=== PATIENT | male | born 1935 | race Caucasian/White ===

== ENCOUNTER 2018-05-26 11:30 | Inpatient (IN) | payer MEDICARE, OTHER ==
[~2018-05-26] VITALS: Ht 172.7 cm; Wt 97.3 kg
[2018-05-26] MEDS ORDERED: FUROSEMIDE 20 MG TAB PO ONE (11:45)
[2018-05-26] MEDS ORDERED: FUROSEMIDE 20 MG TAB ONE (12:12)
[2018-05-26 12:34] LABS: Basophils # (auto) 0.1 uL; Basophils % (auto) 0.7 % (0.0-2.0); Eosinophils # (auto) 0.8 uL; Eosinophils % (auto) 9.3 % (0.0-7.0); Hematocrit 37.5 % (41.0-53.0); Hemoglobin 12.3 g/dL (13.5-17.5); Lymphocytes # (auto) 0.8 uL; Mean Corpuscular Hemoglobin 29.4 pg (28.0-32.0); Mean Corpuscular Hgb Conc. 32.7 g/dL (32.0-36.0); Mean Corpuscular Volume 89.8 fL (80.0-100.0); Monocytes # (auto) 0.7 uL; Monocytes % (auto) 8.5 % (0.0-12.0); Neutrophils # (auto) 6.2 uL; Neutrophils % (auto) 72.5 % (37.0-80.0); Platelet Count (auto) 131 10^3/uL (140-450); Red Blood Cells 4.17 10^6/uL (4.5-5.90); Red Cell Distribution Width 15.5 % (11.8-14.3); White Blood Cell 8.5 10^3/uL (4.4-10.8)
[2018-05-26 12:50] LABS: INR 0.94 (0.9-1.15); Partial Thromboplastin Time 29.2 sec (23.78-33.04); Prothrombin Time 10.1 sec (9.27-12.13)
[2018-05-26 12:54] LABS: Albumin 2.8 g/dL (3.4-5.0); Calcium 7.9 mg/dL (8.5-10.1); Potassium 4.7 mmol/L (3.5-5.1)
[2018-05-26 12:59] LABS: BUN/Creatinine Ratio 13.4; Bilirubin, Total 0.5 mg/dL (0.2-1.0); Total Protein 7.2 g/dL (6.4-8.2)
[2018-05-26] MEDS ORDERED: ENOXAPARIN SOD 100 MG/1 ML SYRINGE SC ONE (13:15)
[2018-05-26] MEDS ORDERED: ACETAMINOPHEN 500 MG TAB PO PRN (13:45)
[2018-05-26] MEDS ORDERED: ALBUTEROL SULF 2.5 MG/0.5ML(0.5%) NEB SOLN NEB PRN (13:45)
[2018-05-26] MEDS ORDERED: NITROGLYCERIN 0.4 MG SL TAB SL PRN (13:45)
[2018-05-26] MEDS ORDERED: TEMAZEPAM 15 MG CAP PO PRN (13:45)
[2018-05-26] MEDS ORDERED: LORazepam 0.5 MG TAB PO PRN (13:45)
[2018-05-26] MEDS ORDERED: LACTULOSE 20Gm/30ML SOLN PO PRN (13:45)
[2018-05-26] MEDS ORDERED: HYDROcodone-ACET 5/325MG TAB PO PRN (13:45)
[2018-05-26] MEDS ORDERED: MORPHINE SULFATE 4 MG/ML SYR/VIAL IV PRN ×2 (13:45)
[2018-05-26] MEDS ORDERED: PROMETHAZINE HCL 25 MG/ML 1ML IV PRN (13:45)
[2018-05-26] MEDS ORDERED: IOHEXOL 350 MG/ML 100ML IJ ONE (13:46)
[2018-05-26] MEDS ORDERED: LIDOCAINE 2%HCL (LOCAL ANESTH.) INJ 20ML MDV ONE (13:46)
[2018-05-26] MEDS ORDERED: fentaNYL CITRATE 100 MCG/2 ML VL ONE ×2 (13:53→16:14)
[2018-05-26] MEDS ORDERED: SODIUM CHL 0.9% 50 ML ONE ×2 (13:54→16:17)
[2018-05-26] MEDS ORDERED: MIDAZOLAM HCL 1MG/1ML-2 ML VIAL ONE ×2 (13:54→15:55)
[2018-05-26] MEDS ORDERED: ANGIOMAX 250 MG VIAL IV ONE ×2 (13:55→16:17)
[2018-05-26] MEDS: SODIUM CHLOR 0.9% PF (SALINE LOCK) 10ML VIAL/SYR IV SCH ×2 (14:00→22:41)
[2018-05-26] MEDS ORDERED: IODIXANOL 320MG/ML 100ML BTL IV ONE ×4 (14:05→15:40)
[2018-05-26] MEDS ORDERED: NITROGLYCERIN 0.2MG/HR TOPICAL PATCH TD ONE (14:15)
[2018-05-26] MEDS ORDERED: ASPirin 81 mg TAB PO ONE (14:15)
[2018-05-26] MEDS ORDERED: PRASUGREL HCL 10 MG TAB PO ONE (14:15)
[2018-05-26] MEDS ORDERED: FUROSEMIDE 40 MG/4 ML VIAL IV ONE (14:15)
[2018-05-26] MEDS ORDERED: ENOXAPARIN SOD 30 MG/0.3 ML SYRINGE SC ONE (14:15)
[2018-05-26] MEDS ORDERED: ENALAPRIL MALEATE 2.5 MG TAB PO ONE (14:15)
[2018-05-26] MEDS ORDERED: CARVEDILOL 3.125 MG TAB PO ONE (14:15)
[2018-05-26] MEDS ORDERED: POTASSIUM CHL 20 Meq TABLET PO ONE (14:15)
[2018-05-26] MEDS ORDERED: hydrALAZINE HCL 20 MG/ML VL ONE ×2 (14:52→16:43)
[2018-05-26] MEDS ORDERED: DOPamine 1600MCG/ML D5W 0 ML IV ONE (15:02)
[2018-05-26] MEDS ORDERED: EPINEPHrine HCL 1 MG/10 ML SYRG ONE (15:02)
[2018-05-26] MEDS ORDERED: ATROPINE SULF 1 MG/10ml SYR ONE (15:02)
[2018-05-26] MEDS ORDERED: ASPirin 81 mg TAB ONE (16:40)
[2018-05-26] MEDS ORDERED: ALPRAZolam 0.5 MG TAB PO PRN (17:15)
[2018-05-26] MEDS ORDERED: ONDANSETRON HCL 4 MG/2 ML VIAL IV PRN (17:15)
[2018-05-26] MEDS ORDERED: ISOS30TA4 PO (17:30)
[2018-05-26] MEDS ORDERED: METO25TA5 PO (17:30)
[2018-05-26] MEDS ORDERED: ASPI81TA27 PO (17:30)
[2018-05-26] MEDS ORDERED: MONT10TA34 PO (17:30)
[2018-05-26] MEDS ORDERED: LEVOTAB51 PO (17:30)
[2018-05-26] MEDS ORDERED: ICOS1CAP OR (17:30)
[2018-05-26] MEDS ORDERED: CHOL200010 PO (17:30)
[2018-05-26] MEDS ORDERED: AMLO5TAB13 PO (17:30)
[2018-05-26] MEDS ORDERED: PRAS10TA6 PO (17:30)
[2018-05-26] MEDS ORDERED: ATOR10TA52 PO (17:30)
[2018-05-26 17:40] VITALS: BP 172/95
[2018-05-26] MEDS: SALINE 0.65 % NASAL SPRAY 45ML BOTTLE EACHNOSTRI SCH ×2 (18:00→22:00)
[2018-05-26 18:50] VITALS: BP 134/73
[2018-05-26 20:00] VITALS: BP_SYST 134; BP_SYST 152; BP_DIAS 73; BP_DIAS 75
[2018-05-26 20:50] VITALS: BP 152/75
[2018-05-26] MEDS: EPA ETHYL ESTER 1 GM OR SCH (22:00)
[2018-05-26] MEDS ORDERED: CARVEDILOL 3.125 MG TAB PO SCH (22:00)
[2018-05-26] MEDS: ATORVASTATIN 20 MG TAB PO SCH (22:37)
[2018-05-26] MEDS: MONTELUKAST SODIUM 10 MG TAB PO SCH (22:39)
[2018-05-26] MEDS: ISOSORBIDE MONONITRATE 60 MG TAB PO SCH (22:39)
[2018-05-26] MEDS: hydrALAZINE HCL 25 MG TAB PO SCH (22:40)
[2018-05-26 23:30] VITALS: BP 167/71
[2018-05-27] VITALS (8 sets, daily range): BP systolic 117–146; BP diastolic 28–80
[2018-05-27] MEDS: SALINE 0.65 % NASAL SPRAY 45ML BOTTLE EACHNOSTRI SCH ×4 (06:00→22:19)
[2018-05-27] MEDS: SODIUM CHLOR 0.9% PF (SALINE LOCK) 10ML VIAL/SYR IV SCH ×3 (06:44→22:23)
[2018-05-27] MEDS: hydrALAZINE HCL 25 MG TAB PO SCH (06:50)
[2018-05-27 07:30] LABS: Basophils # (auto) 0.1 uL; Basophils % (auto) 0.6 % (0.0-2.0); Eosinophils # (auto) 0.8 uL; Eosinophils % (auto) 9.2 % (0.0-7.0); Hematocrit 33.5 % (41.0-53.0); Hemoglobin 11.2 g/dL (13.5-17.5); Lymphocytes # (auto) 0.5 uL; Lymphocytes % (auto) 5.5 % (10.0-50.0); Mean Corpuscular Hemoglobin 29.8 pg (28.0-32.0); Mean Corpuscular Hgb Conc. 33.4 g/dL (32.0-36.0); Mean Corpuscular Volume 89.4 fL (80.0-100.0); Monocytes # (auto) 0.8 uL; Monocytes % (auto) 9.9 % (0.0-12.0); Neutrophils # (auto) 6.3 uL; Neutrophils % (auto) 74.8 % (37.0-80.0); Nucleated Red Blood Cells % 0.3 %; Platelet Count (auto) 118 10^3/uL (140-450); Red Blood Cells 3.75 10^6/uL (4.5-5.90); Red Cell Distribution Width 15.6 % (11.8-14.3); White Blood Cell 8.4 10^3/uL (4.4-10.8)
[2018-05-27 07:35] LABS: Albumin 2.5 g/dL (3.4-5.0); Calcium 8.2 mg/dL (8.5-10.1); Potassium 4.1 mmol/L (3.5-5.1)
[2018-05-27 07:41] LABS: BUN/Creatinine Ratio 13.2; Bilirubin, Total 0.8 mg/dL (0.2-1.0); Total Protein 6.5 g/dL (6.4-8.2)
[2018-05-27] MEDS: EPA ETHYL ESTER 1 GM OR SCH ×2 (09:49→22:00)
[2018-05-27] MEDS: ISOSORBIDE MONONITRATE 60 MG TAB PO SCH ×3 (10:00→22:22)
[2018-05-27] MEDS ORDERED: ENOXAPARIN SOD 40 MG/0.4 ML SYRINGE SC SCH ×2 (10:00)
[2018-05-27] MEDS ORDERED: ENALAPRIL MALEATE 2.5 MG TAB PO SCH (10:00)
[2018-05-27] MEDS ORDERED: NITROGLYCERIN 0.2MG/HR TOPICAL PATCH TD SCH (10:00)
[2018-05-27] MEDS: FUROSEMIDE 40 MG/4 ML VIAL IV SCH (10:03)
[2018-05-27] MEDS: ASPirin 81 mg TAB PO SCH (10:03)
[2018-05-27] MEDS: amLODIPine BESYLATE 5 MG TAB PO SCH (10:04)
[2018-05-27] MEDS: ENOXAPARIN SOD 30 MG/0.3 ML SYRINGE SC SCH (10:04)
[2018-05-27] MEDS: PANTOPRAZOLE 40 MG TAB PO SCH (10:04)
[2018-05-27] MEDS: PRASUGREL HCL 10 MG TAB PO SCH (10:05)
[2018-05-27] MEDS: POTASSIUM CHL 20 Meq TABLET PO SCH (10:06)
[2018-05-27] MEDS: METOPROLOL TARTRATE 25 MG TAB PO SCH (11:52)
[2018-05-27 13:01] LABS: Urine Bacteria NONE SEEN /hpf (None Seen); Urine Blood TRACE /uL (Negative); Urine Specific Gravity 1.024 (1.001-1.035); Urine WBC <1 /hpf (0 - 3)
[2018-05-27] MEDS ORDERED: MAGNESIUM OXIDE 400 MG TAB PO ONE (13:45)
[2018-05-27 18:47] LABS: Protein, Urine 237.2 mg/dL (0.0-11.9)
[2018-05-27] MEDS: MONTELUKAST SODIUM 10 MG TAB PO SCH (22:22)
[2018-05-27] MEDS: ATORVASTATIN 20 MG TAB PO SCH (22:22)
[2018-05-28] VITALS: BP 133/74
[2018-05-28 04:00] VITALS: BP 130/66
[2018-05-28 05:06] LABS: Basophils # (auto) 0 uL; Basophils % (auto) 0.6 % (0.0-2.0); Eosinophils # (auto) 0.7 uL; Eosinophils % (auto) 7.8 % (0.0-7.0); Hematocrit 31.7 % (41.0-53.0); Hemoglobin 10.6 g/dL (13.5-17.5); Lymphocytes # (auto) 0.8 uL; Lymphocytes % (auto) 9.3 % (10.0-50.0); Mean Corpuscular Hemoglobin 29.7 pg (28.0-32.0); Mean Corpuscular Hgb Conc. 33.4 g/dL (32.0-36.0); Monocytes # (auto) 0.9 uL; Monocytes % (auto) 10.7 % (0.0-12.0); Neutrophils % (auto) 71.6 % (37.0-80.0); Platelet Count (auto) 114 10^3/uL (140-450); Red Blood Cells 3.57 10^6/uL (4.5-5.90); Red Cell Distribution Width 15.6 % (11.8-14.3); White Blood Cell 8.4 10^3/uL (4.4-10.8)
[2018-05-28 05:36] LABS: Calcium 7.9 mg/dL (8.5-10.1); Potassium 4.5 mmol/L (3.5-5.1)
[2018-05-28 05:42] LABS: BUN/Creatinine Ratio 12.3
[2018-05-28 05:53] LABS: Phosphorus 4.5 mg/dL (2.5-4.90)
[2018-05-28] MEDS: SALINE 0.65 % NASAL SPRAY 45ML BOTTLE EACHNOSTRI SCH ×4 (06:00→21:45)
[2018-05-28 06:10] LABS: Uric Acid 9.2 mg/dL (3.5-7.2)
[2018-05-28] MEDS: SODIUM CHLOR 0.9% PF (SALINE LOCK) 10ML VIAL/SYR IV SCH ×3 (06:37→22:31)
[2018-05-28 08:00] VITALS: BP 131/59
[2018-05-28] MEDS: POTASSIUM CHL 20 Meq TABLET PO SCH (10:00)
[2018-05-28] MEDS: EPA ETHYL ESTER 1 GM OR SCH ×2 (10:00→22:00)
[2018-05-28] MEDS: FUROSEMIDE 40 MG/4 ML VIAL IV SCH (10:00)
[2018-05-28] MEDS ORDERED: SODIUM CHLORIDE 0.9% 1,000 ML IV ONE (11:45)
[2018-05-28 11:51] VITALS: BP 138/79
[2018-05-28] MEDS: MAGNESIUM OXIDE 400 MG TAB PO SCH (12:17)
[2018-05-28] MEDS: ASPirin 81 mg TAB PO SCH (12:17)
[2018-05-28] MEDS: ENOXAPARIN SOD 30 MG/0.3 ML SYRINGE SC SCH (12:18)
[2018-05-28] MEDS: PANTOPRAZOLE 40 MG TAB PO SCH (12:18)
[2018-05-28] MEDS: amLODIPine BESYLATE 5 MG TAB PO SCH (12:20)
[2018-05-28] MEDS: PRASUGREL HCL 10 MG TAB PO SCH (12:20)
[2018-05-28] MEDS: ISOSORBIDE MONONITRATE 60 MG TAB PO SCH ×2 (12:21→21:44)
[2018-05-28] MEDS: METOPROLOL TARTRATE 25 MG TAB PO SCH (12:21)
[2018-05-28 17:00] VITALS: BP 151/76
[2018-05-28 21:42] VITALS: BP 149/80
[2018-05-28] MEDS: ATORVASTATIN 20 MG TAB PO SCH (21:45)
[2018-05-28] MEDS: MONTELUKAST SODIUM 10 MG TAB PO SCH (21:45)
[2018-05-29 04:47] VITALS: BP 145/74
[2018-05-29] MEDS: SALINE 0.65 % NASAL SPRAY 45ML BOTTLE EACHNOSTRI SCH ×2 (05:05→12:00)
[2018-05-29] MEDS: SODIUM CHLOR 0.9% PF (SALINE LOCK) 10ML VIAL/SYR IV SCH ×2 (05:05→14:02)
[2018-05-29 06:39] LABS: Basophils # (auto) 0 uL; Basophils % (auto) 0.5 % (0.0-2.0); Eosinophils # (auto) 0.7 uL; Eosinophils % (auto) 9.2 % (0.0-7.0); Hematocrit 32.3 % (41.0-53.0); Hemoglobin 10.7 g/dL (13.5-17.5); Lymphocytes # (auto) 0.6 uL; Lymphocytes % (auto) 8.2 % (10.0-50.0); Mean Corpuscular Hemoglobin 29.9 pg (28.0-32.0); Mean Corpuscular Hgb Conc. 33.3 g/dL (32.0-36.0); Mean Corpuscular Volume 89.9 fL (80.0-100.0); Monocytes # (auto) 0.7 uL; Monocytes % (auto) 9.3 % (0.0-12.0); Neutrophils # (auto) 5.3 uL; Neutrophils % (auto) 72.8 % (37.0-80.0); Nucleated Red Blood Cells % 0.1 %; Platelet Count (auto) 109 10^3/uL (140-450); Red Blood Cells 3.59 10^6/uL (4.5-5.90); Red Cell Distribution Width 15.5 % (11.8-14.3); White Blood Cell 7.2 10^3/uL (4.4-10.8)
[2018-05-29 06:58] LABS: BUN/Creatinine Ratio 11.7; Calcium 8.1 mg/dL (8.5-10.1); Potassium 4.3 mmol/L (3.5-5.1)
[2018-05-29 08:46] VITALS: BP 147/71
[2018-05-29] MEDS: ASPirin 81 mg TAB PO SCH (09:22)
[2018-05-29] MEDS: POTASSIUM CHL 20 Meq TABLET PO SCH (09:23)
[2018-05-29] MEDS: ENOXAPARIN SOD 30 MG/0.3 ML SYRINGE SC SCH (09:23)
[2018-05-29] MEDS: PRASUGREL HCL 10 MG TAB PO SCH (09:23)
[2018-05-29] MEDS: PANTOPRAZOLE 40 MG TAB PO SCH (09:23)
[2018-05-29] MEDS: MAGNESIUM OXIDE 400 MG TAB PO SCH (09:23)
[2018-05-29] MEDS: ISOSORBIDE MONONITRATE 60 MG TAB PO SCH (09:23)
[2018-05-29] MEDS: METOPROLOL TARTRATE 25 MG TAB PO SCH (09:24)
[2018-05-29] MEDS: amLODIPine BESYLATE 5 MG TAB PO SCH (09:24)
[2018-05-29] MEDS: EPA ETHYL ESTER 1 GM OR SCH (09:30)
[2018-05-29] MEDS: FUROSEMIDE 40 MG/4 ML VIAL IV SCH (10:00)
[2018-05-29 13:00] VITALS: BP 144/71
[2018-05-29 16:24] VITALS: BP 147/71
[2018-05-29 16:36] VITALS: BP 147/71
[2018-05-29] MEDS ORDERED: ALBUTEROL SULF 2.5 MG/0.5ML(0.5%) NEB SOLN NEB SCH (18:00)
== END 2018-05-29 17:50 | disposition home or self-care (01) | DRG 246 ==
LOC: ER 11:30 → EDBD 11:30 → OVERFLOW 13:41 → DOU IN ICU 18:56 → TELE-WESTW 05-28 15:24
PROVIDERS: ADMIT Internal Medicine; ATTEND Internal Medicine
PROC: 027035Z Dilation of Coronary Artery, One Artery with Two Drug-eluting Intraluminal Devices, Percutaneous Approach (ICD-10-PCS; principal; 2018-05-26)
PROC: 4A023N7 Measurement of Cardiac Sampling and Pressure, Left Heart, Percutaneous Approach (ICD-10-PCS; 2018-05-26)
PROC: B2111ZZ Fluoroscopy of Multiple Coronary Arteries using Low Osmolar Contrast (ICD-10-PCS; 2018-05-26)
PROC: 5A09357 Assistance with Respiratory Ventilation, Less than 24 Consecutive Hours, Continuous Positive Airway Pressure (ICD-10-PCS; 2018-05-26)
PROC: B2151ZZ Fluoroscopy of Left Heart using Low Osmolar Contrast (ICD-10-PCS; 2018-05-26)
PROC: 5A09357 Assistance with Respiratory Ventilation, Less than 24 Consecutive Hours, Continuous Positive Airway Pressure (ICD-10-PCS; 2018-05-27)
PROC: 5A09357 Assistance with Respiratory Ventilation, Less than 24 Consecutive Hours, Continuous Positive Airway Pressure (ICD-10-PCS; 2018-05-28)
DX: I21.4 Non-ST elevation (NSTEMI) myocardial infarction (principal); J96.20 Acute and chronic respiratory failure, unspecified whether with hypoxia or hypercapnia; I50.43 Acute on chronic combined systolic (congestive) and diastolic (congestive) heart failure; N17.0 Acute kidney failure with tubular necrosis; J96.21 Acute and chronic respiratory failure with hypoxia; I13.0 Hypertensive heart and chronic kidney disease with heart failure and stage 1 through stage 4 chronic kidney disease, or unspecified chronic kidney disease; J90 Pleural effusion, not elsewhere classified; N18.4 Chronic kidney disease, stage 4 (severe); E44.0 Moderate protein-calorie malnutrition; I42.9 Cardiomyopathy, unspecified; J44.9 Chronic obstructive pulmonary disease, unspecified; D63.8 Anemia in other chronic diseases classified elsewhere; E66.9 Obesity, unspecified; E83.51 Hypocalcemia; I25.10 Atherosclerotic heart disease of native coronary artery without angina pectoris; N14.1 Nephropathy induced by other drugs, medicaments and biological substances; I44.7 Left bundle-branch block, unspecified; I73.9 Peripheral vascular disease, unspecified; D69.6 Thrombocytopenia, unspecified; I35.2 Nonrheumatic aortic (valve) stenosis with insufficiency; Z87.891 Personal history of nicotine dependence; Z95.0 Presence of cardiac pacemaker; Z95.2 Presence of prosthetic heart valve; Z99.81 Dependence on supplemental oxygen; Z88.2 Allergy status to sulfonamides; Z88.8 Allergy status to other drugs, medicaments and biological substances
CPT/HCPCS: 36415; 36600; 71045; 78582; 80048; 80053; 80061; 81001; 82550; 82570; 82805; 83735; 83880; 84100; 84156; 84300; 84443; 84484; 84550; 85025; 85379; 85610; 85730; 87081; 93005; 93306; 93970; 94640; 94660; 96361; 96374; 99152; A6257; C1874; G0378; J2250; Q9967

== ENCOUNTER → 2018-08-18 | Outpatient (CLI) | payer MEDICARE, OTHER ==
[~2018-08-18] MED LIST: AMLO5TAB13 PO; ASPI81TA27 PO; ATOR10TA52 PO; CHOL200010 PO; ICOS1CAP OR; ISOS30TA4 PO; LEVOTAB51 PO; METO25TA5 PO; MONT10TA34 PO; PRAS10TA6 PO
== END | disposition home or self-care (01) ==
LOC: Rad HDHVI 11:05
PROVIDERS: ATTEND Internal Medicine
DX: R06.02 Shortness of breath (principal)
CPT/HCPCS: 71046

== ENCOUNTER 2018-11-14 11:44 | Emergency (ER) | payer MEDICARE, OTHER ==
[~2018-11-14] VITALS: Ht 172.7 cm; Wt 95.3 kg
[2018-11-14 13:53] LABS: Basophils # (auto) 0.1 uL; Basophils % (auto) 1.1 % (0.0-2.0); Eosinophils # (auto) 0.2 uL; Eosinophils % (auto) 3.6 % (0.0-7.0); Hematocrit 35.5 % (41.0-53.0); Hemoglobin 11.4 g/dL (13.5-17.5); Lymphocytes # (auto) 0.5 uL; Lymphocytes % (auto) 8.1 % (10.0-50.0); Mean Corpuscular Hemoglobin 29.1 pg (28.0-32.0); Mean Corpuscular Volume 90.9 fL (80.0-100.0); Monocytes # (auto) 0.7 uL; Monocytes % (auto) 10.5 % (0.0-12.0); Neutrophils % (auto) 76.7 % (37.0-80.0); Nucleated Red Blood Cells % 0.1 %; Platelet Count (auto) 104 10^3/uL (140-450); Red Blood Cells 3.91 10^6/uL (4.5-5.90); Red Cell Distribution Width 18.7 % (11.8-14.3); White Blood Cell 6.5 10^3/uL (4.4-10.8)
[2018-11-14 16:16] LABS: INR 7.92 (0.9-1.15); Partial Thromboplastin Time 78.6 sec (23.64-32.05)
[2018-11-14 17:09] VITALS: BP 140/65
== END 2018-11-14 17:19 | disposition home or self-care (01) ==
LOC: ER 11:46
DX: R04.0 Epistaxis (principal); I10 Essential (primary) hypertension; J44.9 Chronic obstructive pulmonary disease, unspecified; I12.0 Hypertensive chronic kidney disease with stage 5 chronic kidney disease or end stage renal disease; N18.6 End stage renal disease; E78.5 Hyperlipidemia, unspecified; I25.2 Old myocardial infarction; Z87.891 Personal history of nicotine dependence; Z98.61 Coronary angioplasty status; Z88.2 Allergy status to sulfonamides; Z79.899 Other long term (current) drug therapy
CPT/HCPCS: 30901; 36415; 85025; 85610; 85730; 93005

== ENCOUNTER 2018-11-17 18:29 | Emergency (ER) | payer MEDICARE, OTHER ==
[~2018-11-17] VITALS: Ht 172.7 cm; Wt 94.3 kg
[2018-11-17 21:22] VITALS: BP 125/57
== END 2018-11-17 23:06 | disposition home or self-care (01) ==
LOC: ER 18:31
DX: R04.0 Epistaxis (principal); I25.10 Atherosclerotic heart disease of native coronary artery without angina pectoris; J44.9 Chronic obstructive pulmonary disease, unspecified; E78.5 Hyperlipidemia, unspecified; I25.2 Old myocardial infarction; I12.0 Hypertensive chronic kidney disease with stage 5 chronic kidney disease or end stage renal disease; N18.6 End stage renal disease; Z99.2 Dependence on renal dialysis; Z88.2 Allergy status to sulfonamides; Z88.8 Allergy status to other drugs, medicaments and biological substances; Z79.82 Long term (current) use of aspirin; Z79.899 Other long term (current) drug therapy
CPT/HCPCS: 30901

== ENCOUNTER → 2018-12-05 | Outpatient (CLI) | payer MEDICARE, BC | END | disposition home or self-care (01) | LOC: Rad HDHVI 14:26 | PROVIDERS: ATTEND Internal Medicine | DX: I25.10 Atherosclerotic heart disease of native coronary artery without angina pectoris (principal); R79.1 Abnormal coagulation profile; J44.9 Chronic obstructive pulmonary disease, unspecified; I12.0 Hypertensive chronic kidney disease with stage 5 chronic kidney disease or end stage renal disease; N18.6 End stage renal disease | CPT/HCPCS: 85610; 93306 ==

== ENCOUNTER → 2018-12-13 | Outpatient (CLI) | payer MEDICARE, BC | END | disposition home or self-care (01) | LOC: LAB 14:23 | PROVIDERS: ATTEND Internal Medicine Cardiovascular Disease | DX: R79.1 Abnormal coagulation profile (principal) | CPT/HCPCS: 85610 ==

== ENCOUNTER → 2018-12-20 | Outpatient (CLI) | payer MEDICARE, BC | END | disposition home or self-care (01) | LOC: LAB 14:08 | PROVIDERS: ATTEND Internal Medicine | DX: R79.1 Abnormal coagulation profile (principal); I12.0 Hypertensive chronic kidney disease with stage 5 chronic kidney disease or end stage renal disease; N18.6 End stage renal disease | CPT/HCPCS: 85610 ==

== ENCOUNTER → 2018-12-27 | Outpatient (CLI) | payer MEDICARE, BC ==
[~2018-12-27] MED LIST changes: -AMLO5TAB13 PO; +AMLO5TAB15 PO; +ASPI-404 PO; -ASPI81TA27 PO
== END | disposition home or self-care (01) ==
LOC: LAB 13:46
PROVIDERS: ATTEND Internal Medicine Cardiovascular Disease
DX: R79.1 Abnormal coagulation profile (principal)
CPT/HCPCS: 85610

== ENCOUNTER → 2019-01-03 | Outpatient (CLI) | payer MEDICARE, BC | END | disposition home or self-care (01) | LOC: LAB 14:14 | PROVIDERS: ATTEND Internal Medicine | DX: R79.1 Abnormal coagulation profile (principal) | CPT/HCPCS: 85610 ==

== ENCOUNTER → 2019-01-09 | Outpatient (CLI) | payer MEDICARE, BC ==
[2019-01-09 16:03] LABS: Albumin 3.4 g/dL (3.4-5.0); Calcium 9.1 mg/dL (8.5-10.1); Potassium 3.9 mmol/L (3.5-5.1)
[2019-01-09 16:05] LABS: BUN/Creatinine Ratio 11.3; Bilirubin, Total 0.6 mg/dL (0.2-1.0); Total Protein 8.7 g/dL (6.4-8.2)
[2019-01-09 16:10] LABS: Basophils # (auto) 0.1 uL; Basophils % (auto) 0.8 % (0.0-2.0); Eosinophils # (auto) 0.7 uL; Eosinophils % (auto) 10.2 % (0.0-7.0); Hematocrit 43.1 % (41.0-53.0); Hemoglobin 14.4 g/dL (13.5-17.5); Lymphocytes # (auto) 0.8 uL; Lymphocytes % (auto) 11.5 % (10.0-50.0); Mean Corpuscular Hemoglobin 29.5 pg (28.0-32.0); Mean Corpuscular Hgb Conc. 33.3 g/dL (32.0-36.0); Mean Corpuscular Volume 88.6 fL (80.0-100.0); Monocytes # (auto) 0.7 uL; Monocytes % (auto) 10.1 % (0.0-12.0); Neutrophils # (auto) 4.9 uL; Neutrophils % (auto) 67.4 % (37.0-80.0); Nucleated Red Blood Cells % 0.1 %; Platelet Count (auto) 102 10^3/uL (140-450); Red Blood Cells 4.87 10^6/uL (4.5-5.90); Red Cell Distribution Width 17.3 % (11.8-14.3); White Blood Cell 7.3 10^3/uL (4.4-10.8)
== END | disposition home or self-care (01) ==
LOC: LAB 10:50
PROVIDERS: ATTEND Internal Medicine
DX: D64.9 Anemia, unspecified (principal); R79.1 Abnormal coagulation profile; I13.2 Hypertensive heart and chronic kidney disease with heart failure and with stage 5 chronic kidney disease, or end stage renal disease; I50.33 Acute on chronic diastolic (congestive) heart failure; N18.6 End stage renal disease
CPT/HCPCS: 36415; 80053; 85025; 85610

== ENCOUNTER → 2019-01-30 | Outpatient (CLI) | payer MEDICARE, BC | END | disposition home or self-care (01) | LOC: LAB 12:00 | PROVIDERS: ATTEND Internal Medicine | DX: R79.1 Abnormal coagulation profile (principal) | CPT/HCPCS: 85610 ==

== ENCOUNTER → 2019-03-19 | Outpatient (CLI) | payer MEDICARE, BC | END | disposition home or self-care (01) | LOC: LAB 14:02 | PROVIDERS: ATTEND Internal Medicine | DX: R79.1 Abnormal coagulation profile (principal) | CPT/HCPCS: 85610 ==

== ENCOUNTER → 2019-03-27 | Outpatient (CLI) | payer MEDICARE, BC ==
[2019-03-27 14:53] LABS: INR 2.35 (0.9-1.15); Partial Thromboplastin Time 44.4 sec (23.64-32.05)
== END | disposition home or self-care (01) ==
LOC: LAB 14:12
PROVIDERS: ATTEND Internal Medicine
DX: Z95.2 Presence of prosthetic heart valve (principal); R79.1 Abnormal coagulation profile
CPT/HCPCS: 36415; 85610; 85730

== ENCOUNTER 2019-06-22 14:14 | Inpatient (IN) | payer MEDICARE, OTHER ==
[~2019-06-22] VITALS: Ht 172.7 cm; Wt 96.6 kg
[~2019-06-22 14:14] MED LIST changes: +WARF5TAB71 PO
[2019-06-22] MEDS ORDERED: FUROSEMIDE 40 MG/4 ML VIAL ONE (15:54)
[2019-06-22] MEDS ORDERED: ACETAMINOPHEN 500 MG TAB PO PRN (16:00)
[2019-06-22] MEDS ORDERED: FUROSEMIDE 40 MG/4 ML VIAL IV ONE (16:00)
[2019-06-22] MEDS ORDERED: NITROGLYCERIN 0.4 MG SL TAB SL PRN (16:00)
[2019-06-22] MEDS ORDERED: ONDANSETRON HCL 4 MG/2 ML VIAL IV PRN (16:00)
[2019-06-22] MEDS ORDERED: ALBUTEROL SULF 2.5 MG/0.5ML(0.5%) NEB SOLN NEB PRN (16:00)
[2019-06-22] MEDS ORDERED: traMADol HCL 50 MG TAB PO PRN (16:00)
[2019-06-22] MEDS ORDERED: LACTULOSE 20Gm/30ML SOLN PO PRN (16:00)
[2019-06-22] MEDS ORDERED: MORPHINE SULF INJ 2 MG/ML SYRINGE 1ML IV PRN (16:00)
[2019-06-22] MEDS ORDERED: OSELTAMIVIR 75 MG CAP PO ONE (16:00)
[2019-06-22 16:08] LABS: Basophils # (auto) 0 uL; Basophils % (auto) 0.6 % (0.0-2.0); Eosinophils # (auto) 0.3 uL; Eosinophils % (auto) 3.2 % (0.0-7.0); Hematocrit 34.1 % (41.0-53.0); Hemoglobin 11.4 g/dL (13.5-17.5); Lymphocytes # (auto) 0.6 uL; Lymphocytes % (auto) 7.1 % (10.0-50.0); Mean Corpuscular Hemoglobin 30.5 pg (28.0-32.0); Mean Corpuscular Hgb Conc. 33.4 g/dL (32.0-36.0); Mean Corpuscular Volume 91.6 fL (80.0-100.0); Monocytes # (auto) 0.5 uL; Neutrophils # (auto) 6.4 uL; Neutrophils % (auto) 83.1 % (37.0-80.0); Platelet Count (auto) 96 10^3/uL (140-450); Red Blood Cells 3.73 10^6/uL (4.5-5.90); Red Cell Distribution Width 15.4 % (11.8-14.3); White Blood Cell 7.8 10^3/uL (4.4-10.8)
[2019-06-22 16:18] LABS: INR 1.9 (0.9-1.15)
[2019-06-22 16:22] LABS: Anion Gap 8 (5-15); Blood Urea Nitrogen 30 mg/dL (7-18); Calcium 8.9 mg/dL (8.5-10.1); Carbon Dioxide 29 mmol/L (21-32); Chloride 104 mmol/L (98-107); Glucose 95 mg/dL (74-106); Magnesium 2.2 mg/dL (1.6-2.6); Potassium 3.6 mmol/L (3.5-5.1); Sodium 141 mmol/L (136-145)
[2019-06-22 16:29] LABS: Alanine Aminotransferase 24 U/L (16-61); Alkaline Phosphatase 147 U/L (45-117); Aspartate Aminotransferase 34 U/L (15-37); BUN/Creatinine Ratio 8.9; Bilirubin, Total 0.8 mg/dL (0.2-1.0); GFR African American 22 mL/min; GFR Non-African American 19 mL/min; Total Protein 7.6 g/dL (6.4-8.2)
[2019-06-22] MEDS: DOXYCYCLINE 100MG/250ML 250 ML IV SCH (16:53)
[2019-06-22] MEDS ORDERED: OSELTAMIVIR 30 MG CAP PO ONE (17:15)
[2019-06-22 17:47] VITALS: BP 161/62
[2019-06-22] MEDS: ICOSAPENT ETHYL PO SCH (18:00)
[2019-06-22] MEDS: ALBUTEROL SULF 2.5 MG/0.5ML(0.5%) NEB SOLN NEB SCH (18:22)
[2019-06-22] MEDS: IPRATROPIUM BROM 0.5 MG/2.5ML INH SOL NEB SCH (18:22)
[2019-06-22] MEDS ORDERED: WARFARIN SODIUM 2.5 MG TAB PO ONE (18:30)
[2019-06-22] MEDS ORDERED: OSELTAMIVIR 30 MG CAP PO PRN (21:00)
[2019-06-22] MEDS: FAMOTIDINE 20 MG TAB PO SCH (21:23)
[2019-06-22] MEDS: ATORVASTATIN 20 MG TAB PO SCH (21:23)
[2019-06-22] MEDS: ISOSORBIDE MONONITRATE ER 60 MG TAB PO SCH (21:23)
[2019-06-22] MEDS: SODIUM CHLOR 0.9% PF (SALINE LOCK) 10ML VIAL/SYR IV SCH (21:24)
[2019-06-22 22:00] VITALS: BP 159/72
[2019-06-23] VITALS (7 sets, daily range): BP systolic 133–159; BP diastolic 66–96
[2019-06-23] MEDS: IPRATROPIUM BROM 0.5 MG/2.5ML INH SOL NEB SCH ×4 (00:34→19:36)
[2019-06-23] MEDS: ALBUTEROL SULF 2.5 MG/0.5ML(0.5%) NEB SOLN NEB SCH ×4 (00:35→19:36)
[2019-06-23] MEDS: DOXYCYCLINE 100MG/250ML 250 ML IV SCH ×2 (04:24→16:00)
[2019-06-23] MEDS: SODIUM CHLOR 0.9% PF (SALINE LOCK) 10ML VIAL/SYR IV SCH ×3 (05:34→21:51)
[2019-06-23 06:20] LABS: INR 1.86 (0.9-1.15)
[2019-06-23] MEDS: ICOSAPENT ETHYL PO SCH ×2 (08:00→17:48)
[2019-06-23] MEDS: ENALAPRIL MALEATE 2.5 MG TAB PO SCH (10:00)
[2019-06-23] MEDS ORDERED: ASPirin-EC 81 mg tab PO SCH (10:00)
[2019-06-23] MEDS: amLODIPine BESYLATE 5 MG TAB PO SCH (10:00)
[2019-06-23] MEDS ORDERED: FUROSEMIDE 40 MG/4 ML VIAL IV SCH (10:00)
[2019-06-23] MEDS: ENOXAPARIN SOD 30 MG/0.3 ML SYRINGE SC SCH (10:00)
[2019-06-23] MEDS: PRASUGREL HCL 10 MG TAB PO SCH (10:00)
[2019-06-23] MEDS: ISOSORBIDE MONONITRATE ER 60 MG TAB PO SCH ×2 (10:14→21:52)
[2019-06-23] MEDS: METOPROLOL TARTRATE 25 MG TAB PO SCH (10:15)
[2019-06-23] MEDS: MONTELUKAST SODIUM 10 MG TAB PO SCH (10:16)
[2019-06-23] MEDS: CHOLECALCIFEROL (VITD3) 1,000IU=25mCg TAB PO SCH (10:18)
[2019-06-23] MEDS ORDERED: WARFARIN SODIUM 1 MG TAB PO ONE (17:00)
[2019-06-23] MEDS: ATORVASTATIN 20 MG TAB PO SCH (21:53)
[2019-06-23] MEDS: FUROSEMIDE 40 MG/4 ML VIAL IV SCH (21:59)
[2019-06-24] MEDS: ALBUTEROL SULF 2.5 MG/0.5ML(0.5%) NEB SOLN NEB SCH ×4 (00:48→19:43)
[2019-06-24] MEDS: IPRATROPIUM BROM 0.5 MG/2.5ML INH SOL NEB SCH ×4 (00:48→19:43)
[2019-06-24] MEDS: DOXYCYCLINE 100MG/250ML 250 ML IV SCH ×2 (03:10→15:41)
[2019-06-24 05:01] VITALS: BP 139/66
[2019-06-24] MEDS: SODIUM CHLOR 0.9% PF (SALINE LOCK) 10ML VIAL/SYR IV SCH ×3 (05:18→22:09)
[2019-06-24] MEDS: FUROSEMIDE 40 MG/4 ML VIAL IV SCH ×2 (05:18→17:45)
[2019-06-24 06:20] LABS: Basophils # (auto) 0.1 uL; Basophils % (auto) 0.8 % (0.0-2.0); Eosinophils # (auto) 0.3 uL; Eosinophils % (auto) 4.3 % (0.0-7.0); Hematocrit 32.7 % (41.0-53.0); Hemoglobin 11.1 g/dL (13.5-17.5); Lymphocytes # (auto) 0.6 uL; Lymphocytes % (auto) 8.7 % (10.0-50.0); Mean Corpuscular Hemoglobin 31.1 pg (28.0-32.0); Mean Corpuscular Hgb Conc. 33.9 g/dL (32.0-36.0); Mean Corpuscular Volume 91.8 fL (80.0-100.0); Monocytes # (auto) 0.6 uL; Monocytes % (auto) 8.2 % (0.0-12.0); Neutrophils # (auto) 5.3 uL; Platelet Count (auto) 89 10^3/uL (140-450); Red Blood Cells 3.57 10^6/uL (4.5-5.90); Red Cell Distribution Width 15.5 % (11.8-14.3); White Blood Cell 6.8 10^3/uL (4.4-10.8)
[2019-06-24 06:24] LABS: INR 1.63 (0.9-1.15)
[2019-06-24 06:28] LABS: Potassium 3.2 mmol/L (3.5-5.1)
[2019-06-24 06:34] LABS: BUN/Creatinine Ratio 9.8; Calcium 8.8 mg/dL (8.5-10.1); Phosphorus 3.7 mg/dL (2.5-4.90)
[2019-06-24 08:00] VITALS: BP 157/74
[2019-06-24] MEDS: ICOSAPENT ETHYL PO SCH ×2 (08:00→17:37)
[2019-06-24 09:00] VITALS: BP 157/74
[2019-06-24] MEDS ORDERED: POTASSIUM CHL 20 Meq TABLET PO ONE (09:45)
[2019-06-24] MEDS: METOPROLOL TARTRATE 25 MG TAB PO SCH (09:50)
[2019-06-24] MEDS: PRASUGREL HCL 10 MG TAB PO SCH (09:50)
[2019-06-24] MEDS: ISOSORBIDE MONONITRATE ER 60 MG TAB PO SCH ×2 (09:50→22:08)
[2019-06-24] MEDS: amLODIPine BESYLATE 5 MG TAB PO SCH (09:51)
[2019-06-24] MEDS: MONTELUKAST SODIUM 10 MG TAB PO SCH (09:51)
[2019-06-24] MEDS: ENALAPRIL MALEATE 2.5 MG TAB PO SCH (09:52)
[2019-06-24] MEDS: CHOLECALCIFEROL (VITD3) 1,000IU=25mCg TAB PO SCH (09:52)
[2019-06-24] MEDS: ENOXAPARIN SOD 30 MG/0.3 ML SYRINGE SC SCH (09:52)
[2019-06-24 12:37] VITALS: BP 118/59
[2019-06-24 17:00] VITALS: BP 153/82
[2019-06-24] MEDS: FAMOTIDINE 20 MG TAB PO SCH (22:07)
[2019-06-24] MEDS: ATORVASTATIN 20 MG TAB PO SCH (22:08)
[2019-06-24 22:35] VITALS: BP 151/73
[2019-06-25] MEDS: DOXYCYCLINE 100MG/250ML 250 ML IV SCH ×2 (03:33→16:00)
[2019-06-25 05:38] VITALS: BP 139/70
[2019-06-25] MEDS: FUROSEMIDE 40 MG/4 ML VIAL IV SCH ×2 (05:56→18:00)
[2019-06-25 06:08] LABS: Basophils # (auto) 0 uL; Basophils % (auto) 0.7 % (0.0-2.0); Eosinophils # (auto) 0.4 uL; Eosinophils % (auto) 6.3 % (0.0-7.0); Hematocrit 32.3 % (41.0-53.0); Hemoglobin 11.1 g/dL (13.5-17.5); Lymphocytes # (auto) 0.5 uL; Mean Corpuscular Hemoglobin 31.4 pg (28.0-32.0); Mean Corpuscular Hgb Conc. 34.2 g/dL (32.0-36.0); Mean Corpuscular Volume 91.6 fL (80.0-100.0); Monocytes # (auto) 0.5 uL; Monocytes % (auto) 8.8 % (0.0-12.0); Neutrophils # (auto) 4.4 uL; Neutrophils % (auto) 75.2 % (37.0-80.0); Platelet Count (auto) 79 10^3/uL (140-450); Red Blood Cells 3.53 10^6/uL (4.5-5.90); Red Cell Distribution Width 15.3 % (11.8-14.3); White Blood Cell 5.8 10^3/uL (4.4-10.8)
[2019-06-25 06:12] LABS: INR 1.62 (0.9-1.15); Partial Thromboplastin Time 36.2 sec (23.64-32.05)
[2019-06-25] MEDS: IPRATROPIUM BROM 0.5 MG/2.5ML INH SOL NEB SCH ×4 (06:54→18:00)
[2019-06-25] MEDS: ALBUTEROL SULF 2.5 MG/0.5ML(0.5%) NEB SOLN NEB SCH ×4 (06:54→18:00)
[2019-06-25] MEDS: SODIUM CHLOR 0.9% PF (SALINE LOCK) 10ML VIAL/SYR IV SCH ×3 (07:29→22:33)
[2019-06-25] MEDS: ICOSAPENT ETHYL PO SCH ×2 (08:00→18:00)
[2019-06-25 08:29] VITALS: BP 138/71
[2019-06-25] MEDS: PRASUGREL HCL 10 MG TAB PO SCH (10:59)
[2019-06-25] MEDS: ENOXAPARIN SOD 30 MG/0.3 ML SYRINGE SC SCH (11:01)
[2019-06-25] MEDS: CHOLECALCIFEROL (VITD3) 1,000IU=25mCg TAB PO SCH (11:01)
[2019-06-25] MEDS: ENALAPRIL MALEATE 2.5 MG TAB PO SCH (11:02)
[2019-06-25] MEDS: MONTELUKAST SODIUM 10 MG TAB PO SCH (11:03)
[2019-06-25] MEDS: amLODIPine BESYLATE 5 MG TAB PO SCH (11:03)
[2019-06-25] MEDS: METOPROLOL TARTRATE 25 MG TAB PO SCH (11:06)
[2019-06-25] MEDS: ISOSORBIDE MONONITRATE ER 60 MG TAB PO SCH ×2 (11:08→22:32)
[2019-06-25 12:13] VITALS: BP 121/80
[2019-06-25 16:44] VITALS: BP 143/69
[2019-06-25 21:54] VITALS: BP 135/63
[2019-06-25] MEDS: ATORVASTATIN 20 MG TAB PO SCH (22:32)
[2019-06-26] MEDS: IPRATROPIUM BROM 0.5 MG/2.5ML INH SOL NEB SCH ×3 (00:09→11:59)
[2019-06-26] MEDS: ALBUTEROL SULF 2.5 MG/0.5ML(0.5%) NEB SOLN NEB SCH ×3 (00:10→11:59)
[2019-06-26] MEDS: DOXYCYCLINE 100MG/250ML 250 ML IV SCH (04:04)
[2019-06-26 04:46] VITALS: BP 151/70
[2019-06-26 06:04] LABS: Basophils # (auto) 0.1 uL; Basophils % (auto) 1.1 % (0.0-2.0); Eosinophils # (auto) 0.4 uL; Eosinophils % (auto) 6.8 % (0.0-7.0); Hematocrit 32.7 % (41.0-53.0); Hemoglobin 11.1 g/dL (13.5-17.5); Lymphocytes # (auto) 0.5 uL; Lymphocytes % (auto) 7.9 % (10.0-50.0); Mean Corpuscular Hemoglobin 31.2 pg (28.0-32.0); Mean Corpuscular Hgb Conc. 33.9 g/dL (32.0-36.0); Monocytes # (auto) 0.6 uL; Monocytes % (auto) 9.5 % (0.0-12.0); Neutrophils # (auto) 4.8 uL; Neutrophils % (auto) 74.7 % (37.0-80.0); Nucleated Red Blood Cells % 0.1 %; Platelet Count (auto) 82 10^3/uL (140-450); Red Blood Cells 3.56 10^6/uL (4.5-5.90); Red Cell Distribution Width 15.8 % (11.8-14.3); White Blood Cell 6.5 10^3/uL (4.4-10.8)
[2019-06-26 06:14] LABS: INR 1.42 (0.9-1.15)
[2019-06-26] MEDS: FUROSEMIDE 40 MG/4 ML VIAL IV SCH (06:16)
[2019-06-26] MEDS: SODIUM CHLOR 0.9% PF (SALINE LOCK) 10ML VIAL/SYR IV SCH (06:18)
[2019-06-26 06:21] LABS: Calcium 8.6 mg/dL (8.5-10.1); Potassium 3.3 mmol/L (3.5-5.1)
[2019-06-26 06:23] LABS: BUN/Creatinine Ratio 9.9
[2019-06-26] MEDS: ICOSAPENT ETHYL PO SCH (08:00)
[2019-06-26 09:00] VITALS: BP 111/59
[2019-06-26] MEDS ORDERED: POTASSIUM CHL 10 Meq TABLET PO ONE (09:15)
[2019-06-26] MEDS: ENOXAPARIN SOD 30 MG/0.3 ML SYRINGE SC SCH (10:00)
[2019-06-26] MEDS: PRASUGREL HCL 10 MG TAB PO SCH (10:00)
[2019-06-26] MEDS ORDERED: POTASSIUM CHL 20 Meq TABLET PO ONE (10:15)
[2019-06-26] MEDS: ENALAPRIL MALEATE 2.5 MG TAB PO SCH (10:39)
[2019-06-26] MEDS: amLODIPine BESYLATE 5 MG TAB PO SCH (10:40)
[2019-06-26] MEDS: MONTELUKAST SODIUM 10 MG TAB PO SCH (10:40)
[2019-06-26] MEDS: METOPROLOL TARTRATE 25 MG TAB PO SCH (10:42)
[2019-06-26] MEDS: CHOLECALCIFEROL (VITD3) 1,000IU=25mCg TAB PO SCH (10:42)
[2019-06-26] MEDS: ISOSORBIDE MONONITRATE ER 60 MG TAB PO SCH (10:43)
[2019-06-26 12:40] VITALS: BP 119/71
[2019-06-26 12:43] VITALS: BP 119/71
== END 2019-06-26 14:30 | disposition home health service (06) | DRG 177 ==
LOC: ER 14:14 → TELE 14:15 → TELE-EAST 20:20
PROVIDERS: ADMIT Internal Medicine; ATTEND Internal Medicine
PROC: 0W9B3ZZ Drainage of Left Pleural Cavity, Percutaneous Approach (ICD-10-PCS; principal; 2019-06-25)
DX: J15.0 Pneumonia due to Klebsiella pneumoniae (principal); I50.33 Acute on chronic diastolic (congestive) heart failure; N18.6 End stage renal disease; J96.20 Acute and chronic respiratory failure, unspecified whether with hypoxia or hypercapnia; I13.2 Hypertensive heart and chronic kidney disease with heart failure and with stage 5 chronic kidney disease, or end stage renal disease; J91.8 Pleural effusion in other conditions classified elsewhere; J44.0 Chronic obstructive pulmonary disease with (acute) lower respiratory infection; I25.10 Atherosclerotic heart disease of native coronary artery without angina pectoris; E87.6 Hypokalemia; J44.9 Chronic obstructive pulmonary disease, unspecified; E66.9 Obesity, unspecified; E78.5 Hyperlipidemia, unspecified; D64.9 Anemia, unspecified; Z98.61 Coronary angioplasty status; Z95.2 Presence of prosthetic heart valve; Z99.2 Dependence on renal dialysis; Z79.01 Long term (current) use of anticoagulants; Z79.02 Long term (current) use of antithrombotics/antiplatelets; Z68.32 Body mass index [BMI] 32.0-32.9, adult; Z88.2 Allergy status to sulfonamides; Z88.8 Allergy status to other drugs, medicaments and biological substances; Z82.49 Family history of ischemic heart disease and other diseases of the circulatory system; Z86.14 Personal history of Methicillin resistant Staphylococcus aureus infection; Z79.899 Other long term (current) drug therapy
CPT/HCPCS: 10022; 32555; 36415; 71045; 76604; 76942; 80048; 80053; 83735; 83880; 84100; 84484; 85025; 85610; 85730; 87070; 87077; 87081; 87186; 87205; 87804; 93005; 94640; 99291; G0378; G9035; J3490

== ENCOUNTER 2019-07-31 12:18 | Inpatient (IN) | payer MEDICARE, OTHER ==
[~2019-07-31] VITALS: Ht 172.7 cm; Wt 91.6 kg
--- NOTE | 2019-07-31 13:10 | NUR ---
Direct Admit Note MELISSA WHITE JR admitted to Telemetry/MS unit as a direct admit per MD order. Patient oriented to SANTI MADERA RN primary RN, unit, room, bed, and unit policies regarding patient care and visiting hours. Patient now on continuous telemetry monitoring, tele box #[id number]. Patient weighed by bedscale and encouraged to call if they need something. All questions and concerns addressed, patient verbalized understanding. MD notified of patients arrival and admit orders received.
[2019-07-31 13:30] VITALS: BP 80/47
[2019-07-31] MEDS ORDERED: SODIUM CHLORIDE 0.9% 500 ML IV ONE (14:30)
[2019-07-31] MEDS ORDERED: SEVE800T8 PO (14:38)
[2019-07-31] MEDS ORDERED: MONT10TA34 PO (14:38)
[2019-07-31] MEDS ORDERED: CHOL20007 PO (14:38)
[2019-07-31] MEDS ORDERED: PRAS10TA8 PO (14:38)
[2019-07-31] MEDS ORDERED: ATOR10TA PO (14:38)
[2019-07-31] MEDS ORDERED: AMLO5TAB15 PO (14:38)
[2019-07-31] MEDS ORDERED: NITR0.4S29 SL (14:38)
[2019-07-31] MEDS ORDERED: LEVO2.5S3 PO (14:38)
[2019-07-31] MEDS ORDERED: ISOS30TA4 PO (14:38)
[2019-07-31] MEDS ORDERED: MET50T PO (14:38)
[2019-07-31 15:02] LABS: Basophils # (auto) 0 uL; Eosinophils # (auto) 0.1 uL; Hemoglobin 11.8 g/dL (13.5-17.5); Lymphocytes # (auto) 0.5 uL; Monocytes # (auto) 0.5 uL
[2019-07-31 15:04] LABS: Basophils % (auto) 0.3 % (0.0-2.0); Eosinophils % (auto) 1.8 % (0.0-7.0); Hematocrit 35.1 % (41.0-53.0); Lymphocytes % (auto) 7.9 % (10.0-50.0); Mean Corpuscular Hemoglobin 30.6 pg (28.0-32.0); Mean Corpuscular Hgb Conc. 33.7 g/dL (32.0-36.0); Mean Corpuscular Volume 90.9 fL (80.0-100.0); Monocytes % (auto) 7.7 % (0.0-12.0); Neutrophils # (auto) 4.9 uL; Neutrophils % (auto) 82.3 % (37.0-80.0); Nucleated Red Blood Cells % 0.2 %; Platelet Count (auto) 21 10^3/uL (140-450); Red Blood Cells 3.86 10^6/uL (4.5-5.90); Red Cell Distribution Width 18.8 % (11.8-14.3); White Blood Cell 5.9 10^3/uL (4.4-10.8)
[2019-07-31] MEDS ORDERED: NITROGLYCERIN 0.4 MG SL TAB SL PRN (15:15)
[2019-07-31] MEDS ORDERED: MORPHINE SULF INJ 2 MG/ML SYRINGE 1ML IV PRN (15:15)
[2019-07-31 15:21] LABS: Albumin 2.6 g/dL (3.4-5.0); Calcium 9.2 mg/dL (8.5-10.1); INR 2.43 (0.9-1.15); Magnesium 2.3 mg/dL (1.6-2.6)
[2019-07-31 15:25] LABS: BUN/Creatinine Ratio 7.5; Bilirubin, Total 0.8 mg/dL (0.2-1.0); Total Protein 7.1 g/dL (6.4-8.2)
[2019-07-31 17:08] VITALS: BP 90/55
[2019-07-31] MEDS ORDERED: VANCOMYCIN PER PHARMACY 0 MG IV SCH (17:30)
[2019-07-31] MEDS ORDERED: cefTAZidime 1 GM in SODIUM CHL 0.9% 50 ML IV SCH (17:30)
--- NOTE | 2019-07-31 17:30 | NUR ---
Refusing Rectal Temperature Patient does not want temperature checked rectally at this time. Temperature will not read orally or axillary.
[2019-07-31] MEDS: SEVELAMER 800 MG TAB PO SCH (18:27)
[2019-07-31] MEDS ORDERED: POTASSIUM CHL 20 Meq TABLET PO ONE (19:15)
--- NOTE | 2019-07-31 19:20 | NUR ---
Opening Shift Note Received report from lolly Argueta RN. Assumed care of patient, awake and alert sitting up in bed having dinner. Son at bedside. No S/S of distress/SOB or pain. Instructed on POC and to call for assist PRN, will continue to monitor for changes Q1hr and PRN. Bed placed in lowest position, bed alarm turned on and call light within reach.
--- NOTE | 2019-07-31 19:30 | NUR ---
Closing Shift Note Patient resting in bed. No distress noted. Son at bedside. Will endorse care to the nightclub manager RN.
[2019-07-31 20:00] VITALS: BP 91/48
--- NOTE | 2019-07-31 20:30 | NUR ---
Peritoneal dialysis Son Abiel states that he will do the peritoneal dialysis tonight. He also states that because he has to watch the dialysis machine at press the buttons, he is requesting to stay the night. Charge nurse aware.
[2019-07-31 22:00] VITALS: BP 91/48
[2019-07-31] MEDS: METOPROLOL TARTRATE 25 MG TAB PO SCH (22:00)
[2019-07-31] MEDS ORDERED: VANCOMYCIN 1GM/250ML 250 ML IV ONE (22:00)
[2019-07-31] MEDS ORDERED: ATORVASTATIN 20 MG TAB PO SCH (22:00)
[2019-07-31] MEDS: MONTELUKAST SODIUM 10 MG TAB PO SCH (22:00)
--- NOTE | 2019-08-01 04:49 | NUR ---
Patient is alert and oriented, no distress noted and patient denies pain. Dialysis is still ongoing at this time.
[2019-08-01 05:00] VITALS: BP 131/80
[2019-08-01 05:24] LABS: Basophils # (auto) 0 uL; Eosinophils # (auto) 0 uL; Eosinophils % (auto) 0.6 % (0.0-7.0); Hemoglobin 11.9 g/dL (13.5-17.5); Monocytes # (auto) 0.4 uL
[2019-08-01 05:27] LABS: Basophils % (auto) 0.4 % (0.0-2.0); Hematocrit 34.5 % (41.0-53.0); Lymphocytes # (auto) 0.1 uL; Lymphocytes % (auto) 2.3 % (10.0-50.0); Mean Corpuscular Hemoglobin 31.3 pg (28.0-32.0); Mean Corpuscular Hgb Conc. 34.5 g/dL (32.0-36.0); Mean Corpuscular Volume 90.8 fL (80.0-100.0); Monocytes % (auto) 6.7 % (0.0-12.0); Neutrophils # (auto) 5.6 uL; Nucleated Red Blood Cells % 0.3 %; Platelet Count (auto) 22 10^3/uL (140-450); Red Cell Distribution Width 18.4 % (11.8-14.3); White Blood Cell 6.3 10^3/uL (4.4-10.8)
[2019-08-01 05:40] LABS: INR 2.27 (0.9-1.15); Partial Thromboplastin Time 59.4 sec (23.64-32.05)
[2019-08-01 06:00] LABS: BUN/Creatinine Ratio 7.8
[2019-08-01 06:04] LABS: Potassium 2.8 mmol/L (3.5-5.1)
--- NOTE | 2019-08-01 06:04 | NUR ---
Matt Botello from lab and reports a Potassium of 2.8.
--- NOTE | 2019-08-01 06:40 | NUR ---
Hospitalist called back and an order for potassium 40meq PO times one.
[2019-08-01] MEDS ORDERED: POTASSIUM CHL 20 Meq TABLET PO ONE (07:00)
--- NOTE | 2019-08-01 08:00 | NUR ---
Opening Shift Note Assumed care of patient, awake and alert. No S/S of distress/SOB or pain. Instructed on POC and to call for assist PRN, will continue to monitor for changes Q1hr and PRN.
[2019-08-01] MEDS ORDERED: BUMETANIDE 2.5mg/10ml (0.25 mg/ml) INJ IV ONE (08:15)
[2019-08-01] MEDS: SEVELAMER 800 MG TAB PO SCH ×3 (08:21→18:01)
--- NOTE | 2019-08-01 08:50 | NUR ---
IV removal IV DC'd with clean sterile technique, catheter fully intact. Pressure dressing applied to site. Patient tolerated well.
[2019-08-01 09:00] VITALS: BP 105/55
[2019-08-01] MEDS ORDERED: VANCOMYCIN 1GM/250ML 250 ML IV ONE (09:00)
--- NOTE | 2019-08-01 09:00 | NUR ---
IV insertion IV access obtained, via clean sterile technique by inserting 20 gauge catheter at left forearm after one attempt. IV secured properly. No trauma to site. Patient tolerated well.
[2019-08-01] MEDS ORDERED: POLYETHYLENE GLYCOL 17 GM PWDR PO ONE (10:00)
[2019-08-01] MEDS ORDERED: PRASUGREL HCL 10 MG TAB PO SCH (10:00)
[2019-08-01] MEDS: PERITONEAL DIALYSIS 2.5% SOLN 2,000 ML IP SCH ×4 (10:00→21:49)
[2019-08-01] MEDS: METOPROLOL TARTRATE 25 MG TAB PO SCH ×2 (10:00→21:50)
[2019-08-01] MEDS ORDERED: POTASSIUM CHL 20 Meq TABLET PO SCH (10:00)
[2019-08-01] MEDS ORDERED: amLODIPine BESYLATE 5 MG TAB PO SCH (10:00)
[2019-08-01] MEDS: POTASSIUM CHL 20 Meq TABLET PO SCH ×2 (10:35→21:49)
[2019-08-01] MEDS: LACTULOSE 20Gm/30ML SOLN PO SCH ×2 (10:43→21:50)
--- NOTE | 2019-08-01 11:05 | NUR ---
PT Patient was on dialysis during morning visit. Addendum: 08/01/19 at 1105 by REGINO MOORE PTT Amended: Links added.
[2019-08-01 13:00] VITALS: BP 148/77
--- NOTE | 2019-08-01 13:00 | NUR ---
Called [facility] #[phone] for pacemaker interrogation. Spoke with one of the representatives, patient is not listed to them.
--- NOTE | 2019-08-01 14:00 | NUR ---
Started the manual peritoneal dialysis with 2.5% solution.
[2019-08-01 17:00] VITALS: BP 91/55
--- NOTE | 2019-08-01 17:30 | NUR ---
TEMP-95.1, patient assessed, patient stated feeling fine except for weakness when ambulating. Kept thermoregulated.
[2019-08-01] MEDS: cefTAZidime 0.5 GM in SODIUM CHL 0.9% 50 ML IV SCH (18:20)
--- NOTE | 2019-08-01 18:43 | NUR ---
Left a message to Dr. Loera regarding manual PD. Total Intake of 2.5%-2000ml Total Output -2000ml
--- NOTE | 2019-08-01 18:53 | NUR ---
Spoke with Dr. Loera, updated on the current status of the patient and reported the intake and output of the manual peritoneal dialysis.
--- NOTE | 2019-08-01 19:00 | NUR ---
Gave reports to shift superintendent RN.
[2019-08-01 21:50] VITALS: BP 116/71
[2019-08-01] MEDS: MONTELUKAST SODIUM 10 MG TAB PO SCH (21:50)
[2019-08-01] MEDS: ATORVASTATIN 20 MG TAB PO SCH (21:50)
[2019-08-02] MEDS: PERITONEAL DIALYSIS 2.5% SOLN 2,000 ML IP SCH ×6 (01:53→22:00)
[2019-08-02 04:55] VITALS: BP 88/56
[2019-08-02 05:45] VITALS: BP 93/55
[2019-08-02 06:30] LABS: Basophils # (auto) 0 uL; Eosinophils # (auto) 0.1 uL; Eosinophils % (auto) 0.6 % (0.0-7.0); Hemoglobin 12.6 g/dL (13.5-17.5); Lymphocytes # (auto) 0.4 uL
[2019-08-02 06:33] LABS: Basophils % (auto) 0.2 % (0.0-2.0); Hematocrit 36.8 % (41.0-53.0); Lymphocytes % (auto) 3.4 % (10.0-50.0); Mean Corpuscular Hemoglobin 30.7 pg (28.0-32.0); Mean Corpuscular Hgb Conc. 34.2 g/dL (32.0-36.0); Mean Corpuscular Volume 89.9 fL (80.0-100.0); Monocytes # (auto) 0.7 uL; Neutrophils # (auto) 11.7 uL; Neutrophils % (auto) 90.8 % (37.0-80.0); Nucleated Red Blood Cells % 0.2 %; Platelet Count (auto) 22 10^3/uL (140-450); Red Cell Distribution Width 18.8 % (11.8-14.3); White Blood Cell 12.9 10^3/uL (4.4-10.8)
[2019-08-02 06:52] LABS: Calcium 9.3 mg/dL (8.5-10.1); Potassium 4.1 mmol/L (3.5-5.1)
[2019-08-02 06:56] LABS: BUN/Creatinine Ratio 8.1; Magnesium 2.2 mg/dL (1.6-2.6)
[2019-08-02] MEDS: SEVELAMER 800 MG TAB PO SCH ×3 (08:27→18:11)
[2019-08-02 09:00] VITALS: BP 99/47
--- NOTE | 2019-08-02 09:00 | NUR ---
Unable to obtain oral or axillary temp on patient . Rn made aware .
[2019-08-02] MEDS: POTASSIUM CHL 20 Meq TABLET PO SCH ×2 (10:00→22:53)
[2019-08-02] MEDS: METOPROLOL TARTRATE 25 MG TAB PO SCH ×2 (10:00→22:00)
--- NOTE | 2019-08-02 10:00 | NUR ---
Total peritoneal drainage output-2500ml
--- NOTE | 2019-08-02 10:00 | NUR ---
Total amount of peritoneal drain-2500ml
--- NOTE | 2019-08-02 10:30 | NUR ---
Infused 2000ml of 2.5% peritoneal fluid.
[2019-08-02] MEDS: LACTULOSE 20Gm/30ML SOLN PO SCH ×2 (10:45→22:53)
--- NOTE | 2019-08-02 11:30 | NUR ---
Dr. Patel at bedside, patient and family advised. Made him aware that temperature reading been from 91.2-94.8 for the past 24 hours. Orders received.
[2019-08-02] MEDS ORDERED: SODIUM CHLORIDE 0.9% 250 ML IV ONE (11:45)
[2019-08-02 13:00] VITALS: BP 90/56
--- NOTE | 2019-08-02 13:30 | NUR ---
Temp-91.9, BP-/56, Dr. Patel paged, waiting for call back.
--- NOTE | 2019-08-02 13:35 | NUR ---
Dr. Mcelroy returned call, orders received to place bear hugger on the patient.
--- NOTE | 2019-08-02 14:18 | NUR ---
Called [employer] #[phone] regarding pacemaker interrogation. Spoke with RC, patient is not listed to them.
--- NOTE | 2019-08-02 14:20 | NUR ---
PERITONEAL DRAINAGE OUTPUT-2000ML
--- NOTE | 2019-08-02 14:23 | NUR ---
Infused 2000ml of 2.5% PD solution.
--- NOTE | 2019-08-02 14:30 | NUR ---
Budder from [employer] came in, pacemaker has been interrogated at the office of Dr. Ruffin recently and is working well. Patient's company is [employer].
--- NOTE | 2019-08-02 14:45 | NUR ---
Lamine christensen applied. Will continue to monitor.
--- NOTE | 2019-08-02 15:37 | NUR ---
Patient has discharge planning to SNF. Instructions received from Dr. Loera to find out if there is trained peritoneal flight engineer manager in the facility but if none, patient may need to be on hemodialysis while at the SNF. Will inform corrections caseworker assigned.
[2019-08-02 17:00] VITALS: BP 90/56
[2019-08-02] MEDS ORDERED: SENNA 8.6 MG TAB PO ONE (17:00)
[2019-08-02] MEDS ORDERED: DOCUSATE ORAL LIQUID 100 MG/10 ML UD GT ONE (17:00)
[2019-08-02] MEDS ORDERED: POLYETHYLENE GLYCOL 17 GM PWDR PO ONE (17:00)
--- NOTE | 2019-08-02 17:00 | NUR ---
Lamine christensen stopped at this time as requested by patient due to feeling uncomfortable. Temp-94.3.
--- NOTE | 2019-08-02 18:00 | NUR ---
Peritoneal Dialysis cycler started by patient's son. Manual PD is held. If PD cycler is successful manual PD will be discontinued as per communication order from Dr. Loera.
--- NOTE | 2019-08-02 18:00 | NUR ---
MANUAL PERITONEAL DIALYSIS 2.5% AM SHIFT TOTAL AMOUNT INFUSED 2500ML + 2500ML =5000ML TOTAL AMOUNT OF DRAINAGE 2500ML + 2000ML = 4500ML
--- NOTE | 2019-08-02 18:00 | NUR ---
MANUAL PERITONEAL DIALYSIS AM SHIFT TOTAL AMOUNT PD SOLUTION 2.5% INFUSED 0930-PATIENT'S WT PRIOR TO PD DRAINAGE-196LBS TOTAL DRAINAGE OUTPUT-2500ML 2500ML + 2500ML = 5000ML 1000-PERITONEAL FLUID 2.5% INFUSED-2500ML TOTAL AMOUNT PD DRAINAGE/OUTPUT 1330-PATIENT'S WT PRIOR TO PD DRAINAGE-197.7LBS 2500ML + 2000ML = 4500ML TOTAL DRAINAGE OUTPUT-2000ML 1400-PERITONEAL FLUID 2.5% INFUSED-2500ML Addendum: 08/02/19 at 1955 by Joss Altman RN DOCUMENTATION REVISED AND SIMPLIFIED.
[2019-08-02] MEDS: cefTAZidime 0.5 GM in SODIUM CHL 0.9% 50 ML IV SCH (18:41)
--- NOTE | 2019-08-02 19:00 | NUR ---
Gave reports to night monitor RN. Endorsed to document peritoneal dialysis cycles on the nurses notes.
--- NOTE | 2019-08-02 19:39 | NUR ---
Opening Shift Note Assumed care of patient, awake and alert. No S/S of distress/SOB or pain. Son at bedside. PD CYCLER AT BEDSIDE AND RUNNING. Bear hugger at bedside. Instructed on POC and to call for assist PRN, will continue to monitor for changes Q1hr and PRN. Bed is in lowest position, bed [id number], bed wheels locked. Call light and bedside table within reach.
--- NOTE | 2019-08-02 19:40 | NUR ---
Per patient's son, and dayshift nurse report, PD cycler program set to infuse for a total of 10hrs. Will monitor patient Q1 and PRN for any changes. FLUIDS CURRENTLY GOING IN: 2.5% DEXTROSE LOW CALCIUM (5000ml) 2.5% DEXTROSE LOW CALCIUM (5000ml) 7.5% ICODEXTRIN (2500ML) Per son, patient's initial weight prior to starting PD cycler program was 197.7lb
[2019-08-02 22:00] VITALS: BP 98/57
[2019-08-02] MEDS ORDERED: TEMAZEPAM 15 MG CAP PO ONE (22:45)
[2019-08-02] MEDS: ATORVASTATIN 20 MG TAB PO SCH (22:53)
[2019-08-02] MEDS: MONTELUKAST SODIUM 10 MG TAB PO SCH (22:53)
[2019-08-03] VITALS (7 sets, daily range): BP systolic 83–111; BP diastolic 50–73
--- NOTE | 2019-08-03 00:20 | NUR ---
HYPOTENSIVE EPISODE Patient's blood pressure 58/31, MI 62, RR 16. Hospitalist called and new orders received and executed. Will continue to monitor patient Q1 and PRN. Charge nurse notified.
[2019-08-03] MEDS ORDERED: ALBUMIN 5% 250 ML IV ONE ×2 (00:30→06:30)
--- NOTE | 2019-08-03 00:30 | NUR ---
Patient at this time is responsive to name, and pupils are round and reactive to light. Patient is somewhat drowsy. Will continue to monitor patient Q1 and PRN. Will inform dayshift nurse.
[2019-08-03] MEDS: PERITONEAL DIALYSIS 2.5% SOLN 2,000 ML IP SCH (02:00)
--- NOTE | 2019-08-03 03:30 | NUR ---
Hypotensive Reassessment Patient's BP: 109/66 MA: 65 RR:16 Temp:98.2. Patient has no s/s of distress or SOB. Will continue to monitor Q1 and PRN. Bed is in lowest position, bed rails 2x, bed wheels locked. Call light and bedside table within reach.
--- NOTE | 2019-08-03 05:46 | NUR ---
Hypotensive Reassessment Patient BP: 83/46 NV: 65 RR: 16 Temp: 97.6. Called hospitalist, awaiting call back. Placed patient on bear hugger for warming measures. Will continue to monitor Q1 and PRN.
--- NOTE | 2019-08-03 06:00 | NUR ---
Per patient's son and PD cycler program data: Total therapy volume 8283ML Total UF: 640ML DAY UF: 100ML NIGHT UF: 540ML TOTAL THERAPY TIME: 11hr 5 min Current weight: 191.8lb
--- NOTE | 2019-08-03 06:01 | NUR ---
Patient is still responsive to name, pupils are round and reactive to light. He still exhibits drowsiness. Will inform dayshift nurse. Will continue to monitor Q1 and PRN.
--- NOTE | 2019-08-03 06:05 | NUR ---
PD cycler program issue Per patient's son, he reports that a bag of 2.5% Dextrose (5000ML) did not go into the patient and states this has not happened before and that he will call the peritoneal dialysis nurse. He also states that the fluid that went into to the patient ( 2.5% Dextrose (5000ml) and 7.5% Icodextrin will be drained out at 2611-4122. For this reason at this time total output of dysilate cannot be determined. Patient weight at this time is 191.8lb. Will inform dayshift nurse.
--- NOTE | 2019-08-03 06:20 | NUR ---
Hospitalist call back Received new orders for hypotensive episode and executed. Patient BP: 84/36 NV: 61 RR: 16 Will report to day shift nurse. RN notified.
--- NOTE | 2019-08-03 07:15 | NUR ---
Opening Shift Note Assumed care of patient. Patient appears drowsy but responsive to name and light shaking. Patient appears anxious however foes not show signs of SOB or pain. Bear hugger in place along with peritoneal dialysis machine at bedside. Per patient son, dialysis done at this time, he will drain patient at [id number] later today. Patient and family instructed on POC and to call for assist PRN, will continue to monitor for changes Q1hr and PRN. Fall precautions in place per safety protocol.
[2019-08-03] MEDS: SEVELAMER 800 MG TAB PO SCH ×3 (08:00→18:00)
[2019-08-03] MEDS: LACTULOSE 20Gm/30ML SOLN PO SCH ×2 (10:00→22:17)
[2019-08-03] MEDS ORDERED: predniSONE 20 MG TAB PO SCH (10:00)
[2019-08-03] MEDS: METOPROLOL TARTRATE 25 MG TAB PO SCH (10:00)
[2019-08-03] MEDS: PANTOPRAZOLE 40 MG TAB PO SCH (10:18)
[2019-08-03] MEDS: POTASSIUM CHL 20 Meq TABLET PO SCH (10:18)
--- NOTE | 2019-08-03 10:44 | NUR ---
PT Hold PT as per JILLIAN Alfaro during morning visit. Addendum: 08/03/19 at 1045 by REGINO MOORE PTT Amended: Links added.
[2019-08-03] MEDS ORDERED: LORazepam 2MG/ML-1ML VIAL IV PRN (14:15)
--- NOTE | 2019-08-03 15:52 | NUR ---
assessment Patient is a 83 year old male who is alert and oriented. Patients cognitive abilities are intact. Prior to admission patient lived home with his Jac and functioned independently. Patient has a fww for home use, but does not need to use it. Patient also has home 02 and home dialysis. Patient informed me he is on service with [facility]. Patients PCP is Dr Patel. Patient has a consult for SNF for rehab. Patient agrees. Patients Jac requested AVPA. Per Suzi at [facility] patient will be accepted to room [address] Patel is the accepting MD. Per Suzi they do not do peritoneal dialysis. Per MD patient will be evaluated for hemo dialysis. I informed Suzi I will keep her updated on dialysis decision. I informed patient he has a right to speak to a social media strategist regarding all care. I informed patient he has a right to participate in any and all discharge planning. Patient has a POA and advanced directive. Patient verbalized understanding and agreed to discharge plan. Addendum: 08/03/19 at 1556 by Theodora RUSSO Amended: Links added.
--- NOTE | 2019-08-03 16:30 | NUR ---
MANUAL PERITONEAL DIALYSIS 2.5% DRAIN ONLY TOTAL AMOUNT OF DRAINAGE 2500ML WEIGHT 189.6 KG
[2019-08-03] MEDS ORDERED: Ensure HIGH Protein Vanilla 8oz Bottle PO SCH (18:00)
[2019-08-03] MEDS: Nepro With Carbsteady ButterPecan 8oz Carton PO SCH (18:22)
[2019-08-03] MEDS: cefTAZidime 0.5 GM in SODIUM CHL 0.9% 50 ML IV SCH (18:22)
--- NOTE | 2019-08-03 19:00 | NUR ---
Opening Shift Note Assumed care of patient, pt is awake sitting at the edge of his bed. No S/S of distress/SOB or pain. , Tania, at bedside feeding pt Jesusheather. Talked about plans for pt to poop daily, as well as hemodialysis in the morning. Family and pt aware. Instructed on POC and to call for assist PRN, will continue to monitor for changes Q1hr and PRN. Pt in lowest possible position with bed rails up x2 and call light within reach.
[2019-08-03] MEDS: ATORVASTATIN 20 MG TAB PO SCH (22:17)
[2019-08-03] MEDS: MONTELUKAST SODIUM 10 MG TAB PO SCH (22:17)
--- NOTE | 2019-08-04 | NUR ---
Pt pooped. Pt ambulated to the bathroom with moderate assistance and a walker. Pt pooped, and was assisted back into bed. BP was taken when pt returned to the bed. BP 105/57, will continue to monitor. Placing pt on bed alarm so he does not get up without assistance.
--- NOTE | 2019-08-04 02:00 | NUR ---
Pt pooped. Pt woke up and needed to use the bathroom. Pt received lactulose at 2200. Pt was assisted to the bathroom with moderate assistance and a walker. Pt returned to bed the same way. BP was taken when pt returned to bed. BP was 97/54 with a heart rate of 60. Will continue to monitor pt.
[2019-08-04 05:00] VITALS: BP 101/56
--- NOTE | 2019-08-04 05:44 | NUR ---
Call from [facility]. Nurse coming to do dialysis, eta 15 minutes from call. Expect nurse to be here around 6am for dialysis.
[2019-08-04 06:17] LABS: Basophils # (auto) 0 uL; Basophils % (auto) 0.4 % (0.0-2.0); Eosinophils # (auto) 0.1 uL; Lymphocytes # (auto) 0.6 uL; Lymphocytes % (auto) 9.1 % (10.0-50.0); Red Cell Distribution Width 18.4 % (11.8-14.3)
[2019-08-04 06:20] LABS: Eosinophils % (auto) 1.6 % (0.0-7.0); Hemoglobin 10.9 g/dL (13.5-17.5); Mean Corpuscular Hgb Conc. 33.9 g/dL (32.0-36.0); Mean Corpuscular Volume 91.4 fL (80.0-100.0); Monocytes # (auto) 0.5 uL; Monocytes % (auto) 7.4 % (0.0-12.0); Neutrophils # (auto) 5.1 uL; Neutrophils % (auto) 81.5 % (37.0-80.0); Nucleated Red Blood Cells % 0.1 %; Platelet Count (auto) 25 10^3/uL (140-450); White Blood Cell 6.3 10^3/uL (4.4-10.8)
--- NOTE | 2019-08-04 06:27 | NUR ---
Nurse from [facility] arrived. Setting up for dialysis. Will endorse to day shift.
[2019-08-04 06:32] LABS: INR 1.35 (0.9-1.15); Partial Thromboplastin Time 47.2 sec (23.64-32.05)
[2019-08-04 06:37] LABS: Albumin 2.4 g/dL (3.4-5.0); Calcium 9.2 mg/dL (8.5-10.1); Potassium 3.9 mmol/L (3.5-5.1)
[2019-08-04 06:40] LABS: % Iron Saturation 20.6 % (20-55)
[2019-08-04 06:42] LABS: Bilirubin, Total 0.8 mg/dL (0.2-1.0); Total Protein 6.9 g/dL (6.4-8.2)
--- NOTE | 2019-08-04 06:55 | NUR ---
Pt needs albumin for dialysis. Clarifying orders with Dr. Loera. Talked to exchange with Wilfredo to confirm order, awaiting call back, will inform day shift RN.
[2019-08-04] MEDS ORDERED: SODIUM CHL 0.9% 1000 ML BAG XX ONE (07:00)
--- NOTE | 2019-08-04 07:07 | NUR ---
Closing note. Will endorse to day shift RN.
[2019-08-04] MEDS ORDERED: MIDODRINE HCL 10 MG TAB PO ONE (07:30)
[2019-08-04] MEDS: SEVELAMER 800 MG TAB PO SCH ×3 (08:00→18:26)
[2019-08-04] MEDS: Nepro With Carbsteady ButterPecan 8oz Carton PO SCH ×3 (08:00→18:24)
[2019-08-04] MEDS ORDERED: CATHFLO ACTIVASE (ALTEPLASE) 2 MG VIAL IV ONE (08:15)
--- NOTE | 2019-08-04 08:25 | NUR ---
PER DIALYSIS NURSE PATIENT WILL NOT BE RECEIVING DIALYSIS TODAY AND WILL BE GETTING ATLEPLASE TO DECLOT QUINTAN CATH AND PATIENT WILL RECEIVE DIALYSIS TOMORROW PAGED DOCTOR RENAN REGARDING PATIENT NOT GETTING DIALYSIS TODAY AND IF MD WOULD LIKE TO CONTINUE PATIENT RECEIVING PD DIALYSIS. AWAITING CALL BACK. Addendum: 08/04/19 at 1709 by LUIS ARMANDO CASTELLON RN RN Per Dialysis nurse hemodialysis was attempted. Hemodialysis port was clotted and patient had a gain of 319.
[2019-08-04 09:00] VITALS: BP 98/61
--- NOTE | 2019-08-04 09:40 | NUR ---
Geovany Diaz MD wants to speak with family regarding dialysis options and will update this RN on POC.
--- NOTE | 2019-08-04 10:56 | NUR ---
Paged doctor Luz Maria,regarding POC for patient awaiting call back.
[2019-08-04] MEDS: PANTOPRAZOLE 40 MG TAB PO SCH (11:06)
[2019-08-04] MEDS: LACTULOSE 20Gm/30ML SOLN PO SCH ×2 (11:07→21:53)
[2019-08-04] MEDS ORDERED: IRON SUCROSE COMPLEX 200 MG in SODIUM CHL 0.9% 100 ML IV SCH (12:00)
[2019-08-04] MEDS ORDERED: SODIUM FERR GLUC 62.5MG/5ML 125 MG in SODIUM CHL 0.9% 100 ML IV SCH (12:18)
[2019-08-04] MEDS: ACCU-CHEK COMFORT CURVE STRIP VI SCH ×2 (12:26→17:51)
[2019-08-04] MEDS: InsuLIN REG 1unit/0.01ml Soln (100units/ml) SC SCH ×2 (12:30→18:27)
[2019-08-04 13:00] VITALS: BP 88/52
[2019-08-04] MEDS ORDERED: SODIUM FERR GLUC 62.5MG/5ML 125 MG in SODIUM CHL 0.9% 100 ML IV ONE (13:15)
--- NOTE | 2019-08-04 14:30 | NUR ---
IV insertion IV access obtained, via clean sterile technique by inserting 22 gauge catheter at right wrist after 2 attempts. IV secured properly. No trauma to site. Patient tolerated well. IV removal IV not patent and removed with sterile technique, catheter fully intact. Pressure dressing applied to site. Patient tolerated procedure well. Discharged with aftercare instructions per MD. NOTE:
[2019-08-04] MEDS: methylPREDNISolone SOD SUCC 125 MG/2 ML VL IV SCH ×2 (15:10→21:53)
[2019-08-04 17:00] VITALS: BP 120/58
[2019-08-04] MEDS ORDERED: WARFARIN SODIUM 2 MG TAB PO ONE (17:00)
--- NOTE | 2019-08-04 17:15 | NUR ---
Warfarin held per [place] progress notes to hold if platelets are less the 50.
[2019-08-04] MEDS: cefTAZidime 0.5 GM in SODIUM CHL 0.9% 50 ML IV SCH (18:36)
[2019-08-04 20:00] VITALS: BP 90/47
[2019-08-04] MEDS: ATORVASTATIN 20 MG TAB PO SCH (21:53)
[2019-08-04] MEDS: MONTELUKAST SODIUM 10 MG TAB PO SCH (21:53)
[2019-08-04 22:00] VITALS: BP 90/47
[2019-08-05] MEDS: ACCU-CHEK COMFORT CURVE STRIP VI SCH ×4 (00:05→17:34)
[2019-08-05] MEDS: InsuLIN REG 1unit/0.01ml Soln (100units/ml) SC SCH ×4 (00:13→17:34)
--- NOTE | 2019-08-05 00:43 | NUR ---
Lamine Aguilarr fermin applied per orders due to axillary temp of 93.6. Patient is resting comfortably, with son at bedside. Temperature to be reassessed.
--- NOTE | 2019-08-05 02:11 | NUR ---
Temperature reassessment Axillary temp is 94.0. Lamine hugger temperature increased and cotton blanket placed on top of Lamine hugger blanket. Will reassess.
--- NOTE | 2019-08-05 03:19 | NUR ---
Temperature reassessment Axillary temperature is now 96.7. Will continue to monitor.
[2019-08-05 05:00] VITALS: BP 115/63
--- NOTE | 2019-08-05 05:13 | NUR ---
Rounds Patient awoke confused. Currently sitting on edge of bed. Reoriented to Place, time and situation. Assisted back into bed; patient tolerated well. States he feels hot. Temperature reassessed and is 97.6 Lamine hugger removed at this time.
[2019-08-05] MEDS: methylPREDNISolone SOD SUCC 125 MG/2 ML VL IV SCH ×3 (06:08→22:22)
[2019-08-05 07:17] LABS: INR 1.17 (0.9-1.15)
--- NOTE | 2019-08-05 07:30 | NUR ---
Opening Shift Note Assumed care of patient, awake and alert. No S/S of distress/SOB or pain. Instructed on POC and to call for assist PRN, will continue to monitor for changes Q1hr and PRN. Bed in low and locked position, rails up x2, no-slip socks on. Dialysis nurse at bedside.
[2019-08-05 08:00] VITALS: BP 106/54
[2019-08-05] MEDS: SEVELAMER 800 MG TAB PO SCH ×3 (08:00→17:53)
[2019-08-05] MEDS ORDERED: ALBUMIN 25% 100 ML IV ONE (08:00)
--- NOTE | 2019-08-05 08:30 | NUR ---
DIALYSIS NURSE MEDS PROVIDED ALBUMIN, HEPARIN, 2 NS BAGS FOR DIALYSIS.
[2019-08-05] MEDS: LACTULOSE 20Gm/30ML SOLN PO SCH ×2 (10:00→22:00)
--- NOTE | 2019-08-05 10:15 | NUR ---
DIALYSIS COMPLETE PER DIALYSIS NURSE 807ML REMOVED, FINAL BP 127/42 HR 60, POST DIALYSIS WEIGHT 88.7KG. DURING DIALYSIS BP DROPPED TO 79/46, PATIENT LETHARGIC, SO DIALYSIS COMPLETED. PATIENTS AT BEDSIDE.
[2019-08-05] MEDS: PANTOPRAZOLE 40 MG TAB PO SCH (10:26)
[2019-08-05] MEDS: Nepro With Carbsteady ButterPecan 8oz Carton PO SCH ×3 (10:32→17:53)
--- NOTE | 2019-08-05 10:48 | NUR ---
IV insertion/IV removal IV access obtained, via clean sterile technique by inserting 22 gauge catheter at LEFT WRIST after 1 attempt. IV secured properly. No trauma to site. Patient tolerated well. IV DC'd to right wrist with clean sterile technique, catheter fully intact. Pressure dressing applied to site. Patient tolerated well.
--- NOTE | 2019-08-05 11:15 | NUR ---
DR Cathy BAY AT BEDSIDE SPOKE TO PATIENT AND PATIENTS , LYNNETTE, REGARDING PLAN OF CARE. NO NEW ORDERS, WILL CONTINUE TO MONITOR.
--- NOTE | 2019-08-05 11:20 | NUR ---
PHYSICAL THERAPY AT BEDSIDE PATIENT AMBULATING WITH FWW, SLOW GAIT
[2019-08-05 11:25] LABS: Basophils # (auto) 0 uL; Eosinophils # (auto) 0 uL; Hemoglobin 10.6 g/dL (13.5-17.5); Monocytes # (auto) 0.1 uL
[2019-08-05 11:28] LABS: Basophils % (auto) 0.2 % (0.0-2.0); Lymphocytes # (auto) 0.2 uL; Lymphocytes % (auto) 4.4 % (10.0-50.0); Mean Corpuscular Hemoglobin 30.3 pg (28.0-32.0); Mean Corpuscular Hgb Conc. 33.1 g/dL (32.0-36.0); Mean Corpuscular Volume 91.7 fL (80.0-100.0); Neutrophils # (auto) 4.8 uL; Neutrophils % (auto) 94.4 % (37.0-80.0); Nucleated Red Blood Cells % 0.2 %; Platelet Count (auto) 30 10^3/uL (140-450); Red Blood Cells 3.49 10^6/uL (4.5-5.90); Red Cell Distribution Width 18.6 % (11.8-14.3); White Blood Cell 5.1 10^3/uL (4.4-10.8)
[2019-08-05 12:00] VITALS: BP 113/58
[2019-08-05] MEDS ORDERED: VANCOMYCIN 1GM/250ML 250 ML IV ONE (12:00)
--- NOTE | 2019-08-05 13:25 | NUR ---
[facility] AT BEDSIDE PATIENTS AT BEDSIDE AND HOSPICE PROGRAM WAS BETTER EXPLAINED, ALL QUESTIONS ANSWERED.
--- NOTE | 2019-08-05 15:04 | NUR ---
IV PULLED OUT CALLED INTO ROOM BY FAMILY, STATING THAT THE PATIENT IS BLEEDING, UPON ENTERING ROOM PATIENTS HAND AND IV SITE ARE SATURATED, IV DISLODGED FROM PLACE. IV CATHETER INTACT UPON REMOVAL, AND MANUAL PRESSURE APPLIED TO SITE. PRESSURE DRESSING APPLIED, PATIENT HAND CLEANSED AND GOWN CHANGED. OLD IV SITE NO LONGER BLEEDING. NEW IV ACCESS OBTAINED VIA CLEAN STERILE TECHNIQUE BY INSERTING A 22 GAUGE CATHETER AT LEFT FOREARM AFTER ONE ATTEMPT. IV SECURED PROPERLY AND STOCKINETTE PLACED. NO TRAUMA TO SITE. PATIENT TOLERATED IT WELL.
--- NOTE | 2019-08-05 15:15 | NUR ---
DR URRUTIA AT BEDSIDE PATIENTS AND DAUGHTER AT BEDSIDE
[2019-08-05 17:00] VITALS: BP 116/54
[2019-08-05] MEDS: cefTAZidime 0.5 GM in SODIUM CHL 0.9% 50 ML IV SCH (17:50)
--- NOTE | 2019-08-05 19:20 | NUR ---
OPENING SHIFT NOTE Assumed care of patient who is A&O x2. Currently on 2L NC with no s/s of distress/SOB. Denies pain at this time. Family is present at bedside. Venkat cath in place at right upper chest. No s/s of infection. Peritoneal dialysis catheer in right lower queadrant in place with no s/s of infection. PIV in left forearm is intact and patent. NS locked. Bed is in low locked position with side rails up x2. Call light is within reach and patient encouraged to call for assistance when needed. Will continue to monitor for change PRN.
[2019-08-05 20:00] VITALS: BP 112/61
[2019-08-05 22:00] VITALS: BP 112/61
[2019-08-05] MEDS: ATORVASTATIN 20 MG TAB PO SCH (22:23)
[2019-08-05] MEDS: MONTELUKAST SODIUM 10 MG TAB PO SCH (22:23)
[2019-08-06] MEDS: ACCU-CHEK COMFORT CURVE STRIP VI SCH ×3 (00:07→12:23)
[2019-08-06] MEDS: InsuLIN REG 1unit/0.01ml Soln (100units/ml) SC SCH ×3 (00:07→12:00)
[2019-08-06 05:00] VITALS: BP_SYST 11; BP_SYST 111; BP_DIAS 56
[2019-08-06] MEDS: methylPREDNISolone SOD SUCC 125 MG/2 ML VL IV SCH (06:02)
[2019-08-06 06:53] LABS: Basophils # (auto) 0 uL (0-0.2); Eosinophils # (auto) 0 uL (0-0.8); Lymphocytes # (auto) 0.3 uL (0.4-5.4); Monocytes # (auto) 0.2 uL (0-1.3); Monocytes % (auto) 2.4 % (0.0-12.0); Neutrophils % (auto) 94.1 % (37.0-80.0); Platelet Count (auto) 39 10^3/uL (140-450)
[2019-08-06 06:55] LABS: Hematocrit 29.1 % (41.0-53.0); Lymphocytes % (auto) 3.5 % (10.0-50.0); Mean Corpuscular Hemoglobin 31.7 pg (28.0-32.0); Mean Corpuscular Hgb Conc. 34.4 g/dL (32.0-36.0); Nucleated Red Blood Cells % 0.1 %; Red Blood Cells 3.16 10^6/uL (4.5-5.90); Red Cell Distribution Width 18.6 % (11.8-14.3); White Blood Cell 8.6 10^3/uL (4.4-10.8)
[2019-08-06 07:02] LABS: INR 1.14 (0.9-1.15)
[2019-08-06 08:28] LABS: Ferritin 965.1 ng/mL (10-322); Folate (Folic Acid) 13.84 ng/mL (5.38-24)
[2019-08-06 09:00] VITALS: BP 126/83
[2019-08-06] MEDS: LACTULOSE 20Gm/30ML SOLN PO SCH (09:10)
[2019-08-06] MEDS: Nepro With Carbsteady ButterPecan 8oz Carton PO SCH ×2 (09:10→12:23)
[2019-08-06] MEDS: SEVELAMER 800 MG TAB PO SCH ×2 (09:10→12:23)
[2019-08-06] MEDS: PANTOPRAZOLE 40 MG TAB PO SCH (09:10)
[2019-08-06 09:59] LABS: Hepatitis A Ab IgM Negative; Hepatitis B Core IgM Negative; Hepatitis B Surface Antigen Negative (Negative)
[2019-08-06 10:00] LABS: Hepatitis C Antibody Negative (Negative)
--- NOTE | 2019-08-06 12:00 | NUR ---
SPOKE WITH DR DAY AT NURSING STATION, REPORTS PT IS DC'D HOME ON HOSPICE. FAMILY AT BEDSIDE, FAMILY NOTIFIED TRANSPORT IS AT 1300. FAMILY AWARE.
--- NOTE | 2019-08-06 12:02 | NUR ---
manufacturing storeperson 08/04/19 While manufacturing storeperson patient has a consult for hospice consult. Per patients Lyudmila they want to speak with someone from [facility]. Liliana WALSH from Hospice met with patient and . Patient has been signed onto hospice. Transport will be set up today post discharge. All equipment has been delivered to home. Waiting on ETA now. Addendum: 08/06/19 at 1205 by Theodora RUSSO Amended: Links added.
--- NOTE | 2019-08-06 12:10 | NUR ---
re-assessment Patient will be transported home by safety care transport at 1pm. Patients and bedside RN has been notified. Lyudmila verbalized understanding and agreed to discharge plan home on hospice. Addendum: 08/06/19 at 1427 by Theodora RUSSO Amended: Links added.
[2019-08-06 12:42] VITALS: BP 126/83
[2019-08-06 13:03] VITALS: BP 129/72
--- NOTE | 2019-08-06 13:18 | NUR ---
PT FAMILY CONFIRMS THEY HAVE HOSPICE WORKER INFORMATION AND NUMBER, AND HOSPICE WORKER HAS EXPLAINED HOSPICE TO FAMILY. FAMILY NOTIFIED HOSPICE WILL SET UP FOLLOW UP WITH DR TOBAR AND DR COCHRAN, FAMILY AWARE.
--- NOTE | 2019-08-06 13:51 | NUR ---
Discharge instructions given as ordered. Encourage to follow up with PMD and Dr Henderson as instructed. All questions and concerns addressed. Patient verbalized understanding. Medication reconciliation form completed and copy given to patient. IV removed with catheter intact, pressure dressing applied. Telemetry unit returned to ICU. Patient taken to transport vehicle via wheelchair with all personal belongings, accompanied by staff and family member. No distress noted at time of departure.
== END 2019-08-06 13:00 | disposition hospice, home (50) | DRG 91 ==
LOC: TELE-WESTW 12:41
PROVIDERS: ADMIT Internal Medicine; ATTEND Internal Medicine
PROC: 5A1D70Z Performance of Urinary Filtration, Intermittent, Less than 6 Hours Per Day (ICD-10-PCS; principal; 2019-08-04)
PROC: 5A1D70Z Performance of Urinary Filtration, Intermittent, Less than 6 Hours Per Day (ICD-10-PCS; 2019-08-05)
DX: G92 Toxic encephalopathy (principal); I50.33 Acute on chronic diastolic (congestive) heart failure; N18.6 End stage renal disease; G45.9 Transient cerebral ischemic attack, unspecified; I13.2 Hypertensive heart and chronic kidney disease with heart failure and with stage 5 chronic kidney disease, or end stage renal disease; J96.10 Chronic respiratory failure, unspecified whether with hypoxia or hypercapnia; I25.10 Atherosclerotic heart disease of native coronary artery without angina pectoris; J44.9 Chronic obstructive pulmonary disease, unspecified; E87.6 Hypokalemia; D69.6 Thrombocytopenia, unspecified; T68.XXXA Hypothermia, initial encounter; E78.5 Hyperlipidemia, unspecified; K59.09 Other constipation; K80.20 Calculus of gallbladder without cholecystitis without obstruction; Z51.5 Encounter for palliative care; Z66 Do not resuscitate; Z79.02 Long term (current) use of antithrombotics/antiplatelets; Z99.2 Dependence on renal dialysis; Z95.2 Presence of prosthetic heart valve; Z95.5 Presence of coronary angioplasty implant and graft; Z82.49 Family history of ischemic heart disease and other diseases of the circulatory system; Z88.2 Allergy status to sulfonamides; Z88.8 Allergy status to other drugs, medicaments and biological substances
CPT/HCPCS: 36415; 70450; 71045; 74018; 76700; 80048; 80053; 80074; 80202; 82607; 82728; 82746; 82962; 83540; 83550; 83615; 83735; 83880; 84100; 84484; 85025; 85610; 85730; 87081; 89051; 90935; 97110; 97116; 97530; G0378; J1642; J1756; J1815; P9047